=== PATIENT | male | born 1980 | race Hispanic/Latino ===

== ENCOUNTER 2017-12-25 03:23 | Emergency (ER) | payer OTHER, SELFPAY ==
[2017-12-25] MEDS ORDERED: Fluorescein Opthalmic Strip ONE (03:41)
[2017-12-25] MEDS ORDERED: Proparacaine 0.5% Opth 15 ML BOT ONE (03:41)
[2017-12-25] MEDS ORDERED: Ondansetron PF 4 MG/2 ML Vial ONE (04:02)
[2017-12-25] MEDS ORDERED: Morphine 4 MG/ML VIAL ONE ×2 (04:02→05:26)
[2017-12-25 04:11] LABS: #Eosinphils 0.1 thou/uL (0.0-0.7); #Lymphocytes 2.8 thou/uL (1.20-3.40); #Monocytes 0.9 thou/uL (0.11-0.59); #Neutrophils 4.1 thou/uL (1.40-6.50); %Basophils 0.6 % (0.0-1.0); %Eosinophils 0.7 % (0.0-10.0); %Lymphocytes 35.2 % (21.0-51.0); %Monocytes 10.8 % (0.0-10.0); %Neutrophils 52.7 % (42.0-75.0); Hemoglobin 14.4 g/dL (14.0-18.0); Mean Corpuscular HGB CONC 34.3 g/dL (32.0-36.0); Mean Corpuscular Hemoglobin 30.8 pg (27.0-31.0); Mean Corpuscular Volume 89.7 fL (78.0-98.0); Mean Platelet Volume 8.3 fL (7.4-10.4); Platelet Count 260 thou/uL (130-400); RBC Distribution Width 11.8 % (11.5-14.5); Red Blood Cell (RBC) Count 4.69 mill/uL (4.70-6.10); White Blood Cell (WBC) Count 7.8 thou/uL (4.8-10.8)
[2017-12-25 05:11] LABS: ALT (SGPT) 24 U/L (8-55); AST (SGOT) 25 U/L (5-34); Albumin 4.3 g/dL (3.5-5.0); Alkaline Phosphatase 88 U/L (40-150); Anion Gap 13 mmol/L (10-20); BUN (Urea Nitrogen) 16 mg/dL (8.9-20.6); Bilirubin, Total 0.4 mg/dL (0.2-1.2); Calc. Creatinine Clearance 0 mL/min (70-130); Calcium 9.1 mg/dL (7.8-10.44); Carbon Dioxide 27 mmol/L (22-29); Chloride 103 mmol/L (98-107); Estimated GFR-MDRD Greater than 90; Glucose 108 mg/dL (70-105); Potassium 3.6 mmol/L (3.5-5.1); Protein, Total 7.3 g/dL (6.0-8.3); Sodium 139 mmol/L (136-145)
--- NOTE | 2017-12-25 09:07 | CT ---
PRELIMINARY REPORT/[facility]/EMERGENTY AFTER-HOURS PROCEDURE CT Maxillofacial Without Intravenous Contrast EXAM DATE/TIME: 12/25/2017 4:22 AM CLINICAL HISTORY: 37 years old, male; Pain; Eye pain; Left; Patient HX: M37 presents to ed for left eye swelling. PT st ates he was laying down and went outside to smoke a cigarette and believes something entered his eye. PT says he went inside and felt his eye swell up and his vision blurred. PT denies blunt trauma, denies other symptoms. PT denies travel, [place] activity. PT denies medication use, medical problems. TECHNIQUE: Axial computed tomography images of the face without intravenous contrast. Coronal and sagittal reformatted images were created and reviewed. COMPARISON: No relevant prior studies available. FINDINGS: Bones/joints: See Orbits Finding. Soft tissues: There is subcutaneous fat stranding with soft tissue thickening of the left face inferi or to the orbit. Orbits: There is a 1.2 x 2.3 cm somewhat well circumscribed elongated soft tissue density within the left intraconal space. It appears to be separate from the optic nerve with fat plane differentiation, imaged 15 of series 2. It is difficult to differentiate this finding from the adjacent left lateral rectus muscle especially on image 16, 17 of series 2. There is subtle retro-bulbar fat haziness at th e inferior anterior aspect. There is possible scleral thickening on image 20 of series 2. There is de formity of the right medial orbital wall. Sinuses: There is mild mucosal thickening of the maxillary sinus. No air-fluid levels. IMPRESSION: Left facial cellulitis/edema with somewhat circumscribed elongated soft tissue density within the lef t intraconal space. It is slightly high in density. Given the acute onset differential diagnosis woul d include retrobulbar hematoma versus pseudotumor with possible scleritis. Alternatively, this could re present cavernous hemangioma or peripheral nerve sheath tumor. THIS REPORT CONTAINS FINDINGS THAT MAY BE CRITICAL TO PATIENT CARE. The findings were verbally commun icated via telephone conference with JAY JAY Sandoval at 5:21 AM CDT on 12/25/2017. The findings were acknowledged and understood. Thank you for allowing us to participate in the care of your patient. Dictated and Authenticated by: Jesi Okeefe DO 12/25/2017 5:34 AM Central Time ([place] & [place]) FINAL REPORT CT FACIAL BONES WITHOUT CONTRAST: HISTORY: Swelling. No reported trauma. COMPARISON: None. FINDINGS: This report is in agreement with the preliminary report by [facility]. There is a soft tissue density in th e left intraconal space, which appears to be separate from the optic nerve. This mass abuts the late ral rectus muscle and is difficult to differentiate from the adjacent rectus muscle. There is hazing of the retrobulbar fat. There is associated exophthalmos. There is inflammatory change in the left periorbital region. Old right lamina papyracea fracture is noted. Right maxillary sinus mucosal disease is identified. IMPRESSION: Right periorbital and interconal findings as described above. An infectious/inflammatory process is favored. Other etiologies cannot be completely excluded, especially with regards to the intraconal m ass. Ophthalmological consultation is recommended. Additional imaging should be based upon ophthalm ological consultation. POS: [facility]
== END 2017-12-25 06:21 ==
LOC: ERS 03:23
DX: H05.232 Hemorrhage of left orbit (principal); F17.210 Nicotine dependence, cigarettes, uncomplicated
CPT/HCPCS: 70486; 80053; 85025; 96374; 96375; 96376; J2270; J2405

== ENCOUNTER 2018-07-05 13:29 | Emergency (ER) | payer MEDICAID, SELFPAY ==
--- NOTE | 2018-07-05 14:11 | RAD ---
LEFT KNEE 4 VIEWS: Date: 07/05/18 HISTORY: Left knee pain. FINDINGS/IMPRESSION: No fracture, dislocation, or bony destruction seen. No significant degenerative changes are identifie d. POS: [facility]
[2018-07-05] MEDS ORDERED: Ketorolac Tromethamine 30 MG/ML VIAL ONE (14:19)
== END 2018-07-05 15:15 | disposition home or self-care (01) ==
LOC: ERS 13:29
DX: S83.92XA Sprain of unspecified site of left knee, initial encounter (principal); F17.210 Nicotine dependence, cigarettes, uncomplicated; X50.1XXA Overexertion from prolonged static or awkward postures, initial encounter
CPT/HCPCS: 96372; J1885

== ENCOUNTER 2019-05-21 13:49 | Emergency (ER) | payer SELFPAY | END 2019-05-21 15:09 | disposition home or self-care (01) | LOC: ERS 13:49 | DX: B34.9 Viral infection, unspecified (principal); F17.210 Nicotine dependence, cigarettes, uncomplicated | CPT/HCPCS: 87804; 99283 ==

== ENCOUNTER 2021-06-11 14:19 | Emergency (ER) | payer OTHER, SELFPAY ==
[2021-06-11] MEDS ORDERED: HYDROcodone/Acetaminophen 5/325 mg Tablet ONE (15:34)
== END 2021-06-11 16:30 | disposition home or self-care (01) ==
LOC: ERS 14:19
DX: S83.92XA Sprain of unspecified site of left knee, initial encounter (principal); F17.210 Nicotine dependence, cigarettes, uncomplicated; W18.30XA Fall on same level, unspecified, initial encounter

== ENCOUNTER 2021-09-09 13:09 | Emergency (ER) | payer OTHER | END 2021-09-09 15:25 | disposition home or self-care (01) | LOC: ERS 13:09 | DX: U07.1 COVID-19 (principal); F17.210 Nicotine dependence, cigarettes, uncomplicated | CPT/HCPCS: 87804; 99284; U0003; U0005 ==

== ENCOUNTER 2021-10-07 19:40 | Emergency (ER) | payer OTHER ==
[2021-10-07] MEDS ORDERED: Ketorolac Tromethamine 30 MG/ML VIAL ONE (23:58)
== END 2021-10-08 00:40 | disposition home or self-care (01) ==
LOC: ERS 19:40
DX: S83.92XA Sprain of unspecified site of left knee, initial encounter (principal); F17.210 Nicotine dependence, cigarettes, uncomplicated; X50.9XXA Other and unspecified overexertion or strenuous movements or postures, initial encounter
CPT/HCPCS: 96372; J1885

== ENCOUNTER 2021-11-25 21:47 | Emergency (ER) | payer OTHER ==
[2021-11-25 22:25] LABS: #Eosinphils 0.1 thou/uL (0.0-0.7); #Lymphocytes 2.8 thou/uL (1.20-3.40); #Monocytes 0.8 thou/uL (0.11-0.59); #Neutrophils 6.7 thou/uL (1.40-6.50); %Basophils 0.4 % (0.0-1.0); %Eosinophils 1.2 % (0.0-10.0); %Monocytes 7.6 % (0.0-10.0); %Neutrophils 63.8 % (42.0-75.0); Hemoglobin 14.3 g/dL (14.0-18.0); Mean Corpuscular HGB CONC 34.8 g/dL (32.0-36.0); Mean Corpuscular Hemoglobin 30.2 pg (27.0-31.0); Mean Corpuscular Volume 86.6 fL (78.0-98.0); Mean Platelet Volume 7.9 fL (7.4-10.4); Platelet Count 297 thou/uL (130-400); RBC Distribution Width 12.3 % (11.5-14.5); Red Blood Cell (RBC) Count 4.75 mill/uL (4.70-6.10); White Blood Cell (WBC) Count 10.4 thou/uL (4.8-10.8)
[2021-11-25 22:50] LABS: ALT (SGPT) 22 U/L (8-55); AST (SGOT) 18 U/L (5-34); Albumin 4.2 g/dL (3.5-5.0); Alkaline Phosphatase 97 U/L (40-110); Anion Gap 14 mmol/L (10-20); BUN (Urea Nitrogen) 16 mg/dL (8.9-20.6); Bilirubin, Total 0.2 mg/dL (0.2-1.2); Calc. Creatinine Clearance 0 mL/min (70-130); Calcium 9.6 mg/dL (7.8-10.44); Carbon Dioxide 22 mmol/L (22-29); Chloride 105 mmol/L (98-107); Estimated GFR 86; Globulin 3.1 g/dL (2.4-3.5); Glucose 111 mg/dL (70-105); Lipase 30 U/L (8-78); Potassium 4.2 mmol/L (3.5-5.1); Protein, Total 7.3 g/dL (6.0-8.3); Sodium 137 mmol/L (136-145)
[2021-11-25] MEDS ORDERED: Mag-Al 1200 mg/1200 mg/30 ML UDCUP ONE (23:19)
[2021-11-25] MEDS ORDERED: Acetaminophen 500 MG TAB ONE (23:19)
[2021-11-25] MEDS ORDERED: Lidocaine Viscous Sol 2% 15 ml UD Cup ONE (23:19)
[2021-11-25] MEDS ORDERED: Ketorolac Tromethamine 30 MG/ML VIAL ONE (23:19)
[2021-11-25 23:52] LABS: SARS-CoV-2 NAA Rapid Test Not Detected (NotDetected)
== END 2021-11-26 01:12 | disposition home or self-care (01) ==
LOC: ERS 21:47
DX: R07.81 Pleurodynia (principal); F17.210 Nicotine dependence, cigarettes, uncomplicated; Z20.822 Contact with and (suspected) exposure to COVID-19
CPT/HCPCS: 71045; 80053; 83690; 84484; 85025; 93005; 96374; J1885; U0002

== ENCOUNTER 2022-03-10 16:53 | Emergency (ER) | payer OTHER | END 2022-03-10 20:03 | disposition home or self-care (01) | LOC: ERS 16:53 | DX: M79.10 Myalgia, unspecified site (principal); R11.0 Nausea; J02.9 Acute pharyngitis, unspecified; F17.210 Nicotine dependence, cigarettes, uncomplicated; Z20.822 Contact with and (suspected) exposure to COVID-19 | CPT/HCPCS: 87081; 87430; 87804; 99283; U0003; U0005 ==

== ENCOUNTER 2022-04-21 17:19 | Emergency (ER) | payer OTHER ==
[~2022-04-21 17:19] MED LIST: Iopamidol-370 76% 500 ML 1 ML ONE
[2022-04-21 17:57] LABS: #Basophils 0.1 thou/uL (0.0-0.2); #Eosinphils 0.1 thou/uL (0.0-0.7); #Lymphocytes 2.7 thou/uL (1.20-3.40); #Monocytes 0.9 thou/uL (0.11-0.59); #Neutrophils 6.7 thou/uL (1.40-6.50); %Basophils 0.6 % (0.0-1.0); %Eosinophils 0.5 % (0.0-10.0); %Lymphocytes 25.4 % (21.0-51.0); %Neutrophils 64.5 % (42.0-75.0); Hemoglobin 14.9 g/dL (14.0-18.0); Mean Corpuscular HGB CONC 34.6 g/dL (32.0-36.0); Mean Corpuscular Hemoglobin 30.4 pg (27.0-31.0); Mean Corpuscular Volume 87.9 fl (78.0-98.0); Mean Platelet Volume 8.2 fL (7.4-10.4); Platelet Count 271 10x3/uL (130-400); RBC Distribution Width 12.5 % (11.5-14.5); White Blood Cell (WBC) Count 10.4 10x3/uL (4.8-10.8)
[2022-04-21 18:15] LABS: Anion Gap 10 mmol/L (10-20); BUN (Urea Nitrogen) 15 mg/dL (8.9-20.6); Calc. Creatinine Clearance 0 mL/min (70-130); Calcium 9.3 mg/dL (7.8-10.44); Carbon Dioxide 28 mmol/L (22-29); Chloride 103 mmol/L (98-107); Estimated GFR 109; Glucose 95 mg/dL (70-105); Lipase 39 U/L (8-78); Potassium 4.3 mmol/L (3.5-5.1); Sodium 137 mmol/L (136-145)
[2022-04-21] MEDS ORDERED: Ondansetron ODT 4 MG TAB ONE (22:17)
[2022-04-22] MEDS ORDERED: Ketorolac Tromethamine 30 MG/ML VIAL ONE (00:38)
[2022-04-22 00:45] LABS: Bilirubin Negative (Negative); Blood, Urine Negative (Negative); Clarity Clear (Clear); Glucose, Urine (Dipstick) 70 mg/dL (Negative); Ketone, Urine Negative (Negative); Leukocyte Negative Leu/uL (Negative); Nitrite Negative (Negative); Protein, Urine (Dipstick) Negative (Neg-Trace); Urobilinogen Normal mg/dL (Less than 2)
[2022-04-22 00:49] LABS: Specific Gravity, Urine Greater than 1.060 (1.002-1.036)
== END 2022-04-22 01:35 | disposition home or self-care (01) ==
LOC: ERS 17:19
DX: M54.50 Low back pain, unspecified (principal); F17.210 Nicotine dependence, cigarettes, uncomplicated
CPT/HCPCS: 36415; 74177; 80048; 81003; 83690; 85025; J1885; Q0162; Q9967

== ENCOUNTER 2022-07-13 11:46 | Emergency (ER) | payer OTHER ==
[~2022-07-13 11:46] MED LIST changes: +Iopamidol 370 76% 100 ML VIAL ONE; -Iopamidol-370 76% 500 ML 1 ML ONE
[2022-07-13 12:10] LABS: #Monocytes 0.7 thou/uL (0.11-0.59); #Neutrophils 4.4 thou/uL (1.40-6.50); %Basophils 0.3 % (0.0-1.0); %Eosinophils 0.6 % (0.0-10.0); %Lymphocytes 23.5 % (21.0-51.0); %Monocytes 10.6 % (0.0-10.0); %Neutrophils 64.9 % (42.0-75.0); Hemoglobin 15.4 g/dL (14.0-18.0); Mean Corpuscular HGB CONC 32.7 g/dL (32.0-36.0); Mean Corpuscular Hemoglobin 28.6 pg (27.0-31.0); Mean Corpuscular Volume 87.5 fl (78.0-98.0); Mean Platelet Volume 10.3 fL (7.4-10.4); Platelet Count 295 10x3/uL (130-400); RBC Distribution Width 12.8 % (11.5-14.5); Red Blood Cell (RBC) Count 5.38 mill/uL (4.70-6.10); White Blood Cell (WBC) Count 6.8 10x3/uL (4.8-10.8)
[2022-07-13 12:32] LABS: ALT (SGPT) 21 U/L (8-55); AST (SGOT) 22 U/L (5-34); Albumin 4.4 g/dL (3.5-5.0); Alkaline Phosphatase 94 U/L (40-110); Anion Gap 13 mmol/L (10-20); BUN (Urea Nitrogen) 13 mg/dL (8.9-20.6); Bilirubin, Total 0.3 mg/dL (0.2-1.2); Calc. Creatinine Clearance 0 mL/min (70-130); Calcium 9.2 mg/dL (7.8-10.44); Carbon Dioxide 27 mmol/L (22-29); Chloride 103 mmol/L (98-107); Estimated GFR 86; Globulin 3.3 g/dL (2.4-3.5); Glucose 78 mg/dL (70-105); Lipase 28 U/L (8-78); Potassium 4.1 mmol/L (3.5-5.1); Protein, Total 7.7 g/dL (6.0-8.3); Sodium 139 mmol/L (136-145)
[2022-07-13 13:17] LABS: Bacteria/HPF None Seen HPF (None Seen); Bilirubin Negative (Negative); Blood, Urine Trace (Negative); Clarity Clear (Clear); Glucose, Urine (Dipstick) Normal (Negative); Ketone, Urine Negative (Negative); Leukocyte Negative Leu/uL (Negative); Nitrite Negative (Negative); Protein, Urine (Dipstick) 10 mg/dL (Neg-Trace); RBC/HPF 0-3 HPF (0-3); Squamous Epithelial None Seen HPF (0-3); Urobilinogen Normal mg/dL (Less than 2); WBC/HPF 0-3 HPF (0-3); pH, Urine 5.5 (5.0-9.0)
[2022-07-13] MEDS ORDERED: Ketorolac Tromethamine 30 MG/ML VIAL ONE (13:19)
== END 2022-07-13 14:12 | disposition home or self-care (01) ==
LOC: ERS 11:46
DX: R10.32 Left lower quadrant pain (principal); F17.210 Nicotine dependence, cigarettes, uncomplicated
CPT/HCPCS: 36415; 74177; 80053; 81003; 81015; 83690; 85025; 93005; 96374; J1885; Q9967

== ENCOUNTER 2022-08-18 16:00 | Emergency (ER) | payer OTHER ==
[2022-08-18] MEDS ORDERED: Ketorolac Tromethamine 30 MG/ML VIAL ONE (18:42)
== END 2022-08-18 18:57 | disposition home or self-care (01) ==
LOC: ERS 16:00
DX: S83.91XA Sprain of unspecified site of right knee, initial encounter (principal); F17.210 Nicotine dependence, cigarettes, uncomplicated; X50.0XXA Overexertion from strenuous movement or load, initial encounter
CPT/HCPCS: 96372; J1885

== ENCOUNTER 2022-08-24 21:46 | Emergency (ER) | payer OTHER ==
[2022-08-24] MEDS ORDERED: Ketorolac Tromethamine 30 MG/ML VIAL ONE (22:46)
== END 2022-08-24 22:59 | disposition home or self-care (01) ==
LOC: ERS 21:46
DX: S83.91XA Sprain of unspecified site of right knee, initial encounter (principal); F17.210 Nicotine dependence, cigarettes, uncomplicated
CPT/HCPCS: 96372; 99281; J1885

== ENCOUNTER 2022-10-15 00:22 | Emergency (ER) | payer OTHER ==
[2022-10-15] MEDS ORDERED: Ketorolac Tromethamine 30 MG/ML VIAL ONE (01:54)
== END 2022-10-15 02:14 | disposition home or self-care (01) ==
LOC: ERS 00:22
DX: H01.006 Unspecified blepharitis left eye, unspecified eyelid (principal)
CPT/HCPCS: 96372; 99283; J1885

== ENCOUNTER 2022-12-08 13:21 | Outpatient (CLI) | payer OTHER | END 2022-12-08 13:22 | disposition home or self-care (01) | LOC: BICRAD 13:21 | PROVIDERS: ATTEND Preventive Medicine Occupational Medicine | DX: Z02.71 Encounter for disability determination (principal); M25.561 Pain in right knee; M25.562 Pain in left knee ==